=== PATIENT | male | born 1980 | race Caucasian/White ===

== ENCOUNTER → 2023-03-18 08:11 | Outpatient (CLI) | payer BC, SELFPAY ==
--- NOTE | ~2023-03-18 | CT_ITS ---
EXAMINATION: CT diagnostic chest w con DATE: 03/18/2023 08:48 INDICATION: Pleural chest pain. Left chest pain. TECHNIQUE: Computed tomography (CT) of the chest was performed with 75 CC Omnipaque 350 intravenous c ontrast. Automated exposure control and iterative reconstruction technique were employed. Exam dose: 535.34 mGy-cm total exam DLP. COMPARISON: None FINDINGS: Normal heart size. No thoracic aortic aneurysm or dissection. No hilar or mediastinal mass lesion or lymphadenopathy. No pericardial or pleural effusion. No pulmonary mass lesion. The lungs are clear. Included skeletal structures are unremarkable. IMPRESSION: Negative Reviewed, dictated and finalized at [facility]. Reviewed, dictated and finalized at [facility]. [facility] IMPRESSION: Negative
== END ==
PROVIDERS: PCP Physician Assistant; Visit Provider Physician Assistant
DX: R07.81 Pleurodynia (principal)
CPT/HCPCS: 71260; Q9967

== ENCOUNTER 2023-09-04 10:42 | Outpatient (CLI) | payer BC, SELFPAY ==
--- NOTE | ~2023-09-04 | XR_ITS ---
3 VIEWS LUMBAR SPINE Ordering provider: Talya Long, SHRUTHI History: . Radiculopathy, lumbar region . Comparison: March 12, 2008 FINDINGS: VERTEBRAL BODIES: No visible fracture or subluxation. DISK SPACES: Narrowing of the disc L4-L5 and L5-S1. Facet joint disease at the level of L3-L4, L4-L5 and L5-S1. SOFT TISSUES: Normal. IMPRESSION: No acute osseous abnormality lumbar spine. Narrowing of the disc L4-L5 and L5-S1. Multilevel facet joint disease. Consider follow up MRI lumbar spine if there is concern for spinal stenosis/neural impingement. Reviewed, dictated and finalized at [facility]. IMPRESSION: No acute osseous abnormality lumbar spine. Narrowing of the disc L4-L5 and L5-S1. Multilevel facet joint disease. Consider follow up MRI lumbar spine if there is concern for spinal stenosis/darian ral impingement.
== END 2023-09-04 10:43 ==
LOC: GOSHIMG 10:43
PROVIDERS: PCP Physician Assistant; Visit Provider Physician Assistant
DX: M54.16 Radiculopathy, lumbar region (principal)
CPT/HCPCS: 72100